=== PATIENT | female | born 1980 | race Caucasian/White ===

== ENCOUNTER 2018-12-19 14:11 | Emergency (ER) | payer OTHER ==
[~2018-12-19] VITALS: Ht 154.9 cm; Wt 60.0 kg
[~2018-12-19 14:11] MED LIST: DOXY1TAB3 PO; FOLI0.4T2 PO; INSU100C SQ; LEVEM SC; PRENAT PO
[2018-12-19 14:26] VITALS: BP 111/72; PULSE 106; RESP 18; Ht 154.9 cm; Wt 60.0 kg
--- NOTE | 2018-12-19 15:10 | ERD ---
ER Documentation Chief Complaint Chief Complaint VAGINAL SPOTTING WITH 7 WEEKS PREG, +AP HPI 38-year-old female with a history of diabetes mellitus on insulin. Currently, at approximately 7 weeks by LMP 11/03/2018, presents to the emergency department, complaining of 1 day with vaginal spotting associated with mild pelvic cramping pain. The patient denies fever or chills, no diarrhea or constipation, no nausea or vomiting. The patient has established already care with Dr. Paez. ROS All systems reviewed and are negative except as per history of present illness. Medications Home Meds Reported Medications Doxylamine/Pyridoxine Hcl (DICLEGIS DR 10-10 MG TABLET) 1 Each Tablet.dr, 1 TAB PO, TAB 04/14/16 Insulin Detemir (Levemir) 100 Unit/1 Ml Vial, 48 UNIT SC QHS for ELEVATED GLUCOSE, VIAL 03/21/16 Insulin Lispro (Humalog) 100 Unit/1 Ml Cartridge, 25 UNIT SQ AC MEALS for ELEVATED GLUCOSE 03/21/16 Folic Acid* (Folic Acid*) 0.4 Mg Tablet, 0.4 MG PO DAILY, TAB 03/21/16 Multivit/Min/Fol Ac/Iron/Pren* ( S*) 1 Tab Tab, 1 TAB PO DAILY, TAB 03/21/16 Allergies Allergies: Coded Allergies: No Known Drug Allergies (Verified Allergy, Unknown, 03/21/16) PMhx/Soc History of Surgery: Yes (lap jesse) Hx Miscellaneous Medical Probl: Yes (Diabetes) FmHx Family History: diabetes; No coronary disease Physical Exam Vitals Vital Signs Date Temp Pulse Resp B/P (MAP) Pulse Ox O2 O2 Flow FiO2 Time Delivery Rate 12/19/18 99.0 106 18 111/72 99 14:26 (85) Physical Exam Const: No acute distress Head: Atraumatic Eyes: Normal Conjunctiva ENT: Normal External Ears, Nose and Mouth. Neck: Full range of motion. No meningismus. Resp: Clear to auscultation bilaterally Cardio: Regular rate and rhythm, no murmurs Abd: Soft, non tender, non distended. Normal bowel sounds Skin: No petechiae or rashes Back: No midline or flank tenderness Ext: No cyanosis, or edema Neur: Awake and alert Psych: Normal Mood and Affect Result Diagram: 12/19/18 1522 Results 24 hrs Laboratory Tests Test 12/19/18 15:22 12/19/18 15:23 White Blood Count 6.6 10^3/ul Red Blood Count 4.48 10^6/ul Hemoglobin 13.5 g/dl Hematocrit 38.9 % Mean Corpuscular Volume 86.8 fl Mean Corpuscular Hemoglobin 30.1 pg Mean Corpuscular Hemoglobin Concent 34.7 g/dl Red Cell Distribution Width 12.3 % Platelet Count 318 10^3/UL Mean Platelet Volume 9.1 fl Immature Granulocytes % 0.600 % Neutrophils % 62.5 % Lymphocytes % 24.1 % Monocytes % 9.4 % Eosinophils % 2.6 % Basophils % 0.8 % Nucleated Red Blood Cells % 0.0 /100WBC Immature Granulocytes # 0.040 10^3/ul Neutrophils # 4.1 10^3/ul Lymphocytes # 1.6 10^3/ul Monocytes # 0.6 10^3/ul Eosinophils # 0.2 10^3/ul Basophils # 0.1 10^3/ul Nucleated Red Blood Cells # 0.0 10^3/ul Beta HCG, Quantitative 923.0 mIU/ml Urine Color YELLOW Urine Clarity CLEAR Urine pH 7.0 Urine Specific [place] 1.026 Urine Ketones TRACE mg/dL Urine Nitrite NEGATIVE mg/dL Urine Bilirubin NEGATIVE mg/dL Urine Urobilinogen 1+ mg/dL Urine Leukocyte Esterase NEGATIVE Nelly/ul Urine Hemoglobin NEGATIVE mg/dL Urine Glucose 3+ mg/dL Urine Total Protein NEGATIVE mg/dl Patient: FIDEL DANG : 1980 Age: 38 Sex: F MR #: [id number] [facility] #: [id number] DOS: 12/19/18 1504 Ordering MD: KISHAN JARRETT MD Location: REPLACED BY [facility] Room/Bed: PROCEDURE: OBSTETRIC ULTRASOUND CLINICAL INDICATION: Vaginal bleeding with a previous history of miscarriage. TECHNIQUE: Obstetric ultrasound was performed without anatomical survey. COMPARISON: None. FINDINGS: There is a single live intrauterine containing a normal-sized yolk sac and a pole. The CRL is 2 mm corresponding to 5 weeks and 5 days of gestational age. The heart rate is 105 beats per minute. The ovaries are unremarkable with preserved vascular flow. There is no adnexal mass or free pelvic fluid. IMPRESSION: Single viable intrauterine with an estimated gestational age of 5 weeks and 3 days. Procedures/MDM Vital signs stable, Physical exam unremarkable. Differential diagnosis include but not limited to: UTI, threatening , incomplete versus complete , ectopic , physiologic implantation bleeding, molar . Physical examination and clinical presentation most likely consistent with threatening . During the ED course the patient remained hemodynamically stable and asymptomatic. Results and clinical impression discussed with patient who agrees with management. The patient is stable to be treated outpatient and will be discharged home with close monitoring and follow-up in 2 days with her primary physician. Bed rest and pelvic rest recommended until further medical evaluation. The patient was instructed regarding the outcomes and the potential complications like severe bleeding and . If the patient presents severe bleeding or pain, she was instructed to return to the hospital immediately. Disclaimer: Inadvertent spelling and grammatical errors are likely due to EHR/dictation software use and do not reflect on the overall quality of patient care. Also, please note that the electronic time recorded on this note does not necessarily reflect the actual time of the patient encounter. Departure Diagnosis: Primary Impression: Vaginal bleeding in patient at less than 20 weeks gestation Condition: Stable Patient Instructions: Bleeding During Early Additional Instructions: Thank you very much for allowing us to participate in your care. Your health and safety is our top priority at [facility]. The evaluation in the emergency department has been done to rule out an acute emergency. Chronic, [id number] conditions may have not been evaluated; therefore, you need to follow up with a primary care provider in the next 48h. If symptoms persist, worsen or new symptoms develop, then patient should return to the ED immediately. Call your primary care doctor TOMORROW for an appointment during the next 2-4 days and bring all the information provided. Have prescriptions filled and follow precisely the directions on the label. If the symptoms get worse and your provider is unavailable, return to the Emergency Department immediately. KISHAN JARRETT MD Dec 19, 2018 15:10
== END 2018-12-19 17:52 | disposition home or self-care (01) ==
LOC: FTE 14:11
DX: O20.9 Hemorrhage in early pregnancy, unspecified (principal); O24.111 Pre-existing type 2 diabetes mellitus, in pregnancy, first trimester; R10.2 Pelvic and perineal pain; E11.9 Type 2 diabetes mellitus without complications; Z3A.01 Less than 8 weeks gestation of pregnancy; Z79.4 Long term (current) use of insulin
CPT/HCPCS: 36415; 76801; 76817; 81003; 84702; 85025; Z7502